=== PATIENT | male | born 1970 | race Caucasian/White ===

== ENCOUNTER 2017-07-20 09:21 | Emergency (ER) | payer OTHER ==
[~2017-07-20 09:21] MED LIST: ALEVE220 MG; MOTRIN,RUFEN800 MG; PERCOCET 325 MG1 TA7; ULTRAM50 MG PO; VICODIN 500 MG-1 TAB PO
[2017-07-20] MEDS ORDERED: ORPHENADRINE C100 M1 PO (11:07)
[2017-07-20] MEDS ORDERED: NAPROSYN500 MG PO (11:07)
== END 2017-07-20 11:18 | disposition home or self-care (01) ==
LOC: ED 09:21
DX: S39.012A Strain of muscle, fascia and tendon of lower back, initial encounter (principal); F17.200 Nicotine dependence, unspecified, uncomplicated; X58.XXXA Exposure to other specified factors, initial encounter; Y93.9 Activity, unspecified; Y92.9 Unspecified place or not applicable; Y99.9 Unspecified external cause status

== ENCOUNTER 2017-11-10 19:24 | Emergency (ER) | payer OTHER ==
[~2017-11-10] VITALS: Ht 177.8 cm; Wt 117.9 kg
[~2017-11-10 19:24] MED LIST changes: +NAPROSYN500 MG PO; +ORPHENADRINE C100 M1 PO
[2017-11-10 19:32] VITALS: BP 133/73
[2017-11-10 20:24] LABS: BASO % 0.3 % (0.0-1.0); EOS # 0.2 10*3/uL (0.0-0.4); EOS % 1.5 % (1.0-4.0); HEMATOCRIT 44.3 % (42.0-52.0); HEMOGLOBIN 14.6 g/dl (14.0-18.0); LYMPH # 4.4 10*3/uL (1.3-4.4); LYMPH % 30.6 % (27.0-41.0); MEAN CORPUSCULAR HGB 29.3 pg (27.0-31.0); MEAN PLATELET VOLUME 9.1 fl (9.6-12.3); MONO # 1.1 10*3/uL (0.1-1.0); MONO % 7.7 % (3.0-9.0); NEUT # 8.5 10*3/uL (2.3-7.9); NEUT % 59.6 % (47.0-73.0); PLATELET COUNT AUTOMATED 425 10*3/uL (130-400); RED BLOOD COUNT 4.98 10*6/uL (4.50-5.90); RED CELL DISTRI WIDTH 13.2 % (0-14.5); WHITE BLOOD COUNT 14.2 10*3/uL (4.8-10.8)
[2017-11-10 20:35] LABS: BILIRUBIN NEGATIVE (NEGATIVE); BLOOD NEGATIVE (NEGATIVE); CLARITY CLEAR (CLEAR); COLOR YELLOW (YELLOW); GLUCOSE NEGATIVE (NEGATIVE); KETONE NEGATIVE (NEGATIVE); LEUKO ESTERASE NEGATIVE (NEGATIVE); NITRITE NEGATIVE (NEGATIVE); UROBILINOGEN 0.2 E.U./dl (0.2-1.0)
[2017-11-10 20:39] LABS: ALBUMIN 3.5 gm/dl (3.1-4.5); ALKALINE PHOSPHATASE 114 U/L (45-117); BUN 18 mg/dl (7-24); CHLORIDE 103 mmol/L (98-107); CREATININE 1.28 mg/dL (0.70-1.30); POTASSIUM 3.8 mmol/L (3.5-5.1); SGOT/AST 23 IU/L (3-35); SGPT/ALT 40 U/L (12-78); SODIUM 137 mmol/L (136-145); TOTAL PROTEIN 7.7 gm/dL (6.4-8.2)
[2017-11-10 20:42] LABS: WBC 0-2 wbc/hpf (0-5)
[2017-11-11] MEDS ORDERED: CIPRO500 MG PO (11:44)
[2017-11-11] MEDS ORDERED: IBU800 MG PO (11:44)
[2017-11-11] MEDS ORDERED: FLAGYL500 MG PO (11:44)
== END 2017-11-11 00:06 | disposition left against medical advice (07) ==
LOC: ED 19:24 → EDHOLD 22:11 → 4E 22:20 → EDHOLD 22:20 → 4E 22:20 → ED 11-11 00:06
PROVIDERS: Emergency Medicine Emergency Medical Services
DX: K57.32 Diverticulitis of large intestine without perforation or abscess without bleeding (principal); Z79.899 Other long term (current) drug therapy

== ENCOUNTER → 2021-10-31 | Outpatient (CLI) | payer OTHER ==
[~2021-10-31] MED LIST changes: +CIPRO500 MG PO; +FLAGYL500 MG PO; +IBU800 MG PO; +SEPTDS PO
== END ==
LOC: COVID19 15:32
PROVIDERS: ATTEND Internal Medicine
DX: Z11.52 Encounter for screening for COVID-19 (principal); Z20.822 Contact with and (suspected) exposure to COVID-19